=== PATIENT | female | born 1955 | race Two or more races ===

== ENCOUNTER 2024-06-10 11:59 | Day surgery (SDC) | payer OTHER, SELFPAY ==
--- NOTE | 2024-06-10 12:44 | MHC.SHP ---
Pre-Procedural Eval Section A - 24 Hr Update-Section A only Date of Service: 06/10/24 The patient is an INPATIENT: No Changes since office visit: No Cold of Flu in the past 2 weeks, No New Medical Problems, No Changes in Medication and No Patient answered all questions The patient has been examined within 24 hours of the surgical procedure. The History & Physical has been completed within 30 days and I have reviewed it.: Yes Section B - Complete if H&P > 30 days Chief Complaint: cherelle,gerd Allergies: Allergies Allergy/AdvReac Type Severity Reaction Status Date / Time Penicillins Allergy Unknown Verified 01/09/24 08:41 Plan I have reviewed the history and physical and performed a pertinent physical examination on my patient. No changes have occurred unless specified. Time Spent With Patient Time: Total time managing care of this patient today ____ minutes.
[2024-06-10 12:51] VITALS: BMI 33.4
[2024-06-10 12:58] VITALS: BP 138/82; PULSE 77; RESP 16; TEMP 36.1; O2SAT 99; BMI 33.4
--- NOTE | 2024-06-10 13:03 | PC.NURSE ---
Pt admitted by, and IV started by, Pauline Harrison RN. Pt states she is allergic to Tylenol (hives).
--- NOTE | 2024-06-10 13:33 | P.CONAN_ITS ---
HPI - Anesthesia Eval Consult details Narrative: 68 yo presenting for EGD and colonoscopy [facility] Past Medical History Medical History Hyperlipidemia Osteoporosis Migraine headache GERD (gastroesophageal reflux disease) HTN (hypertension) Family History Family history of problems with anesthesia: No Surgical History Surgical History History of temporal artery biopsy H/O arthroscopic knee surgery History of partial hysterectomy History of Problems with Anesthesia: No Social History Social History Patient Tobacco Use Status: Current everyday Tobacco user Cigarettes Per Day: 10 Use of substances other than those prescribed or required for medical reasons: No Are you DNR?: No Advance Directives: No Advance Directives Information Provided: Yes Meds Allergies Allergy/AdvReac Type Severity Reaction Status Date / Time acetaminophen Allergy Hives Verified 06/10/24 13:03 Penicillins Allergy Unknown Verified 01/09/24 08:41 Home Medications ?Medication ?Instructions ?Recorded ?Confirmed ?Last Taken ?Type amlodipine 10 mg tablet 10 mg PO DAILY 01/09/24 01/09/24 06/10/24 09:00 History ascorbic acid (vitamin C) 500 mg 500 mg PO DAILY 01/09/24 01/09/24 Unknown History chewable tablet atorvastatin 80 mg tablet 80 mg PO DAILY 01/09/24 01/09/24 Unknown History calcium carbonate 500 mg PO BID 01/09/24 01/09/24 Unknown History celecoxib 01/09/24 Unknown History cholecalciferol (vitamin D3) 25 25 mcg PO DAILY 01/09/24 01/09/24 Unknown History mcg (1,000 unit) capsule clonidine 0.1 mg/24 hr weekly 1 patch transdermal QWEEK 01/09/24 01/09/24 Unknown History transdermal patch furosemide 40 mg tablet 40 mg PO DAILY 01/09/24 01/09/24 Unknown History indomethacin 50 mg capsule 50 mg PO BID 01/09/24 01/09/24 Unknown History melatonin 3 mg capsule 3 mg PO BEDTIME PRN Insomnia 01/09/24 01/09/24 Unknown History multivitamin 1 tab PO DAILY 01/09/24 01/09/24 Unknown History omeprazole 20 mg tablet,delayed 20 mg PO DAILY 01/09/24 01/09/24 Unknown History release potassium chloride 10 mEq 10 meq PO DAILY 01/09/24 01/09/24 Unknown History capsule,extended release topiramate 25 mg tablet 25 mg PO DAILY 01/09/24 01/09/24 Unknown History venlafaxine 150 mg 150 mg PO DAILY 01/09/24 01/09/24 Unknown History capsule,extended release 24 hr Exam Exam Date and Time: June 10, 2024 1334 Height,Weight and Vital Signs: Height 5 ft Weight 77.564 kg Last Vital Signs Temp 97.0 F 06/10/24 12:58 Pulse 77 06/10/24 12:58 Resp 16 06/10/24 12:58 BP 138/82 06/10/24 12:58 Pulse Ox 99 06/10/24 12:58 O2 Del Method Room Air 06/10/24 12:58 Airway Mallampati Class: II TM Dist: >3cm Neck ROM: Full Loose/Missing/Broken Teeth: No (patient denies any loose or broken teeth) Heart: S1S2 Lungs: CTAB Assessment and Plan Assessment Anesthesia Assessment: Anesthesia Plan Discussed and Chart Reviewed Final Anesthetic Review Family History of Problems with Anesthesia: No History of Problems with Anesthesia: No NPO: Yes ASA Class: II Final Preanesthetic Review: No Changes in Pt Med Stat, Meds/Allgs Chart Reviewed, Consent Obtained/Reviewed and Anes Risks/Benef Reviewed Patient Risk: Low Procedure Risk: Low Anesthetic Plan Anesthetic Plan: MAC: and Agree w/ Assess. and Plan Disposition: Standard PACU
[2024-06-10 14:50] VITALS: BP 95/62; PULSE 81; RESP 16; TEMP 36.1; O2SAT 97
[2024-06-10 15:05] VITALS: BP 136/73; PULSE 79; RESP 18; TEMP 36.4; O2SAT 98
[2024-06-10 15:17] VITALS: BP 155/81; PULSE 71; RESP 18; O2SAT 100
[2024-06-10 15:32] VITALS: BP 146/84; PULSE 72; RESP 16; TEMP 36.2; O2SAT 100
--- NOTE | 2024-06-10 21:56 | OP_ITS ---
DATE OF SERVICE: 06/10/2024 SURGEON: Bunny Mooney MD INDICATIONS: Rectal bleeding and gastroesophageal reflux disease. PREOPERATIVE DIAGNOSIS: POSTOPERATIVE DIAGNOSIS: PROCEDURE PERFORMED: Upper endoscopy with biopsy, colonoscopy to the terminal ileum. ESTIMATED BLOOD LOSS: COMPLICATIONS: ANESTHESIA: Monitored anesthesia care. ASSISTANTS: SPECIMENS: DESCRIPTION OF PROCEDURE: A history and physical was performed. The risks and benefits of the procedure were explained to the patient. Informed consent was obtained. The patient was placed in the left lateral decubitus position. A digital rectal exam was performed and was found to be normal. The Olympus video gastroscope was introduced into the esophagus, stomach, and duodenum. Examination was performed. The scope was removed. She was repositioned for colonoscopy. The Olympus pediatric video colonoscope was introduced into the rectum and advanced to the cecum. The cecum was identified by transillumination, palpation, and identification of ileocecal valve. Examination was performed. The scope was removed. She tolerated both procedures well and was returned to the recovery area in stable condition. Abdominal wall pressure was used to assist in advancing the scope due to looping in the sigmoid. FINDINGS: Esophagus: The esophagus showed irregular EG junction. This was biopsied. Stomach: Stomach showed no evidence of masses, ulcers, or polyps. Antral biopsies were obtained. Duodenum: The bulb and 2nd portion were normal. Colonoscopy: The terminal ileum was examined and appeared normal. The visualized colonic mucosa was normal. The quality of the prep was fair with some liquid stool coating the mucosa, mainly in the right colon and transverse colon. This was washed and suctioned. There was extensive diverticulosis in the sigmoid with luminal narrowing in the sigmoid was quite tortuous. No polyps were identified. Retroflexed examination showed no lesions, but the sphincter tone was noticed to be diminished. There were some small external hemorrhoids. IMPRESSION: 1. Gastroesophageal reflux disease. 2. Normal colonoscopy. RECOMMENDATION: 1. Follow up the biopsy results. 2. Repeat colonoscopy is recommended in 10 years for average-risk individuals. MD JESUS Valdovinos/SANDRO / [id number]
== END 2024-06-10 15:36 | disposition home or self-care (01) ==
PROVIDERS: PCP Internal Medicine; Visit Provider Internal Medicine Gastroenterology
PROC: (CPT 43239; principal; 2024-06-10 12:40)
DX: K92.1 Melena (principal); K57.30 Diverticulosis of large intestine without perforation or abscess without bleeding; K64.4 Residual hemorrhoidal skin tags; K62.89 Other specified diseases of anus and rectum; K21.9 Gastro-esophageal reflux disease without esophagitis; K29.50 Unspecified chronic gastritis without bleeding; B96.81 Helicobacter pylori [H. pylori] as the cause of diseases classified elsewhere; I10 Essential (primary) hypertension; E78.5 Hyperlipidemia, unspecified; M81.0 Age-related osteoporosis without current pathological fracture; G43.909 Migraine, unspecified, not intractable, without status migrainosus; Z79.899 Other long term (current) drug therapy; Z88.0 Allergy status to penicillin; Z88.8 Allergy status to other drugs, medicaments and biological substances; Z98.890 Other specified postprocedural states; F17.210 Nicotine dependence, cigarettes, uncomplicated
CPT/HCPCS: 43239; G0121; 88305; 88313; 88342; J1596; J2704